=== PATIENT | female | born 1935 | race Caucasian/White ===

== ENCOUNTER 2016-05-17 04:35 | Emergency (ER) | payer OTHER, BC ==
[~2016-05-17] VITALS: Ht 165.1 cm; Wt 91.6 kg
[~2016-05-17 04:35] MED LIST: METOPROLOL SUCC50 MG PO; QUETIAPINE FUMA25 MG PO
[2016-05-17 05:44] LABS: HEMATOCRIT 33.6 % (36.0-46.0); MCHC 32.1 G/DL (30.0-36.0); MCV 96.6 FL (83-99); PLATELET COUNT 480 K/uL (156-360); RBC DIS.WIDTH-CV 14.5 % (11.8-14.6); RBC DIS.WIDTH-SD 48.2 % (39-53); RED BLOOD COUNT 3.48 M/uL (3.80-5.20); WHITE BLOOD COUNT 13.8 K/uL (4.1-10.2)
[2016-05-17 05:54] LABS: CHLORIDE 104 mEq/L (99-109); SODIUM 137 mEq/L (136-147)
[2016-05-17 05:56] LABS: GLUCOSE 111 mg/dL (70-99)
[2016-05-17 05:57] LABS: ANION GAP 10 MEQ/L (2-14)
[2016-05-17 05:59] LABS: GFR ESTIMATE (CALCULATED) 46 mL/min/
[2016-05-17 06:00] LABS: UREA NITROGEN (BUN) 27 mg/dL (9-23)
[2016-05-17] MEDS ORDERED: IRBESARTAN-HCT1 EACH PO (06:30)
[2016-05-17 08:03] LABS: ADD MIUA? NO; BILIRUBIN SMALL; BLOOD NEGATIVE; COLOR DK YELLOW ((YELLOW)); GLUCOSE (STRIP) NEGATIVE; KETONES TRACE; LEUKOCYTES NEGATIVE; NITRITE NEGATIVE; PROTEIN (STRIP) TRACE; SPECIFIC GRAVITY 1.026 (1.000-1.030); UCUL ADDED? NO
[2016-05-17 08:48] VITALS: BP 142/65
== END 2016-05-17 08:53 | disposition home or self-care (01) ==
LOC: EME 04:35
PROVIDERS: Emergency Medicine
DX: F03.90 Unspecified dementia, unspecified severity, without behavioral disturbance, psychotic disturbance, mood disturbance, and anxiety (principal); I10 Essential (primary) hypertension; Z91.14 Patient's other noncompliance with medication regimen
CPT/HCPCS: 70450; 80048; 81003; 85027; 99281; 99284

== ENCOUNTER 2017-10-07 11:15 | Observation (INO) | payer OTHER, BC ==
[~2017-10-07] VITALS: Ht 167.6 cm; Wt 90.9 kg
[~2017-10-07 11:15] MED LIST changes: +IRBESARTAN-HCT1 EACH PO
[2017-10-07 11:47] LABS: BASOPHIL (%) 0.4 % (0-1); BASOPHIL COUNT 0.1 K/uL (0-0.1); EOSINOPHIL (%) 0.9 % (0-5); EOSINOPHIL COUNT 0.1 K/uL (0-0.3); HEMATOCRIT 38.5 % (36.0-46.0); HEMOGLOBIN 12.6 G/DL (11.9-15.5); IMMATURE GRANULOCYTE (%) 0.3 % (0.0-0.7); LYMPHOCYTE (%) 15.5 % (15-42); MCH 31.2 PG (29.0-34.0); MCHC 32.7 G/DL (30.0-36.0); MCV 95.3 FL (83-99); MONOCYTE (%) 6.8 % (3-12); MONOCYTE COUNT 0.9 K/uL (0-0.8); NEUTROPHIL (%) 76.1 % (45-76); NEUTROPHIL COUNT 9.7 K/uL (1.8-6.4); PLATELET COUNT 279 K/uL (156-360); RBC DIS.WIDTH-CV 13.6 % (11.8-14.6); RBC DIS.WIDTH-SD 48.3 % (39-53); RED BLOOD COUNT 4.04 M/uL (3.80-5.20); WHITE BLOOD COUNT 12.7 K/uL (4.1-10.2)
[2017-10-07 11:55] LABS: INTER. NORMALIZED RATIO 1.3
[2017-10-07 11:58] LABS: PTT 26.7 SEC (25-37)
[2017-10-07 12:01] LABS: CHLORIDE 106 mEq/L (99-109); POTASSIUM 3.7 mEq/L (3.7-5.4); SODIUM 142 mEq/L (136-147)
[2017-10-07 12:03] LABS: GLUCOSE 111 mg/dL (70-99)
[2017-10-07 12:07] LABS: CREATININE 1.4 mg/dL (0.6-1.3); GFR ESTIMATE (CALCULATED) 38 mL/min/
[2017-10-07 12:08] LABS: UREA NITROGEN (BUN) 32 mg/dL (9-23)
[2017-10-07 12:12] LABS: TROP-I INTERPRETATION NEGATIVE; TROPONIN-I 0.01 ng/mL (0.0-0.30)
[2017-10-07] MEDS ORDERED: NAMENDA10 MG PO (14:01)
[2017-10-07] MEDS ORDERED: OLANZAPINE5 MG PO (14:01)
[2017-10-07] MEDS ORDERED: DONEPEZIL HCL10 MG PO (14:02)
[2017-10-07] MEDS ORDERED: LO-DOSE ASPIRIN81 M1 PO (14:02)
[2017-10-07] MEDS ORDERED: VITAMIN D2000 UNI1 PO (14:03)
[2017-10-07 15:08] LABS: HDL CHOLESTEROL 40 MG/DL (Desirable>=50); LDL CHOLESTEROL 90 mg/dL (Desirable<100); NON-HDL CHOLESTEROL 105 mg/dL (Desirable<160); TOTAL CHOLESTEROL 145 mg/dL (Desirable<200); TRIGLYCERIDES 75 MG/DL (Normal: <150)
[2017-10-07 15:15] LABS: APPEARANCE CLEAR ((CLEAR)); BILIRUBIN NEGATIVE; BLOOD SMALL; COLOR YELLOW ((YELLOW)); GLUCOSE (STRIP) NEGATIVE; KETONES NEGATIVE; LEUKOCYTES NEGATIVE; NITRITE NEGATIVE; PROTEIN (STRIP) NEGATIVE; SPECIFIC GRAVITY 1.058 (1.000-1.030)
[2017-10-07 15:18] LABS: BACTERIA NONE SEEN /HPF; EPITHELIAL CELLS NONE SEEN /HPF; MUCUS TRACE /LPF; RED BLOOD CELLS 0-5 /HPF (0-5); UCUL ADDED? NO; WHITE BLOOD CELLS 0-5 /HPF (0-5)
[2017-10-07 16:58] VITALS: BP 143/65
[2017-10-07 18:10] LABS: TROP-I INTERPRETATION NEGATIVE; TROPONIN-I 0.02 ng/mL (0.0-0.30)
[2017-10-07 19:53] VITALS: BP 123/58
[2017-10-07 23:11] LABS: TROP-I INTERPRETATION NEGATIVE; TROPONIN-I 0.02 ng/mL (0.0-0.30)
[2017-10-07 23:36] VITALS: BP 136/68
[2017-10-08 03:38] VITALS: BP 110/58
[2017-10-08 05:53] LABS: BASOPHIL (%) 0.4 % (0-1); BASOPHIL COUNT 0.1 K/uL (0-0.1); EOSINOPHIL (%) 3.1 % (0-5); EOSINOPHIL COUNT 0.4 K/uL (0-0.3); HEMATOCRIT 34.9 % (36.0-46.0); HEMOGLOBIN 11.2 G/DL (11.9-15.5); IMMATURE GRANULOCYTE (%) 0.6 % (0.0-0.7); LYMPHOCYTE (%) 17.7 % (15-42); MCHC 32.1 G/DL (30.0-36.0); MCV 96.7 FL (83-99); MONOCYTE (%) 6.3 % (3-12); MONOCYTE COUNT 0.7 K/uL (0-0.8); NEUTROPHIL (%) 71.9 % (45-76); NEUTROPHIL COUNT 8.2 K/uL (1.8-6.4); PLATELET COUNT 274 K/uL (156-360); RBC DIS.WIDTH-CV 13.7 % (11.8-14.6); RBC DIS.WIDTH-SD 48.8 % (39-53); RED BLOOD COUNT 3.61 M/uL (3.80-5.20); WHITE BLOOD COUNT 11.4 K/uL (4.1-10.2)
[2017-10-08 06:14] LABS: CHLORIDE 107 MEQ/L (99-109); CREATININE 1.1 MG/DL (0.6-1.3); GFR ESTIMATE (CALCULATED) 51 mL/min/; POTASSIUM 3.9 MEQ/L (3.7-5.4); SODIUM 142 MEQ/L (136-147); UREA NITROGEN (BUN) 25 mg/dL (9-23)
[2017-10-08 06:17] LABS: GLUCOSE 80 mg/dL (70-99)
[2017-10-08 07:55] VITALS: BP 112/61
[2017-10-08 10:38] LABS: HEMOGLOBIN A1c (GLYCOHEMOGLOB) 5.4 % (Below 5.7)
[2017-10-08 10:39] LABS: HEMOGLOBIN A1c (GLYCOHEMOGLOB) 5.4 % (Below 5.7)
== END 2017-10-08 13:22 | disposition home or self-care (01) ==
LOC: EME 11:15 → EDOF 13:56 → 5SOUTH 13:56 → ENRESERV 13:58 → 5SOUTH 16:56
PROVIDERS: Emergency Medicine; Student in an Organized Health Care Education/Training Program
DX: E86.0 Dehydration (principal); R27.0 Ataxia, unspecified; I10 Essential (primary) hypertension; F03.90 Unspecified dementia, unspecified severity, without behavioral disturbance, psychotic disturbance, mood disturbance, and anxiety; R41.82 Altered mental status, unspecified; I44.7 Left bundle-branch block, unspecified; Z79.82 Long term (current) use of aspirin
CPT/HCPCS: 70450; 70496; 70498; 70551; 71045; 80048; 80061; 81003; 82948; 83036; 84484; 85025; 85610; 85730; 87040; 92610 GN; 93005; 99281; 99285; G0378; G8978 GP CI; G8979 GP CH; G8980 GP CI; G8987 GO CI; G8988 GO CH; G8989 GO CI; J1644; J7030